=== PATIENT | female | born 1965 | race African-American/Black ===

== ENCOUNTER 2020-11-10 23:47 | Observation (INO) | payer OTHER ==
[~2020-11-10] VITALS: Ht 172.7 cm; Wt 70.0 kg
[2020-11-11] MEDS ORDERED: SODIUM CHLORIDE 0.9% 1,000ML IVBOLUS ONE
--- NOTE | 2020-11-11 | NUR ---
TASK RN: CALL PLACED TO POISON CONTROL REGARDING PT INGESTION OF POSSIBLE ASPIRIN, MELATONIN AND WINDEX. PER POISON CONTROL, NO CONCERN REGARDING MELATONIN CONSUMPTION. WITH WINDEX, ETOH LEVEL TO BE TESTED AND MONITORED. WITH ASPIRIN CONSUMPTION, ASPIRIN LEVEL TO BE TESTED YANICK, IF INITIAL RESULT NEGATIVE, REPEAT TESTING IN 2 HOURS. IF INITIAL RESULT POSITIVE FOR ASPIRIN, LEVELS TO BE DRAWN EVERY 2 HOURS UNTIL PEAK THEN EVERY 4 HOURS UNTIL LEVEL IS LESS THAN 30. IF ASPIRIN LEVEL AT 30, POISON CONTROL ADVISED PT TO BE STARTED ON BICARB INFUSION. IMPORTANT TO CLOSELY MONITOR KIDNEY FUNCTION (BUN/CREATININE), POTASSIUM, RESPIRATORY RATE, TEMP, NAUSEA AND VOMITING. POISON CONTROL TO CALL BACK LATER. CASE #:[id number]
--- NOTE | 2020-11-11 00:02 | NUR ---
Luis felix in [facility] - 11/11/20 at 0002 by JUANITA REPORT GIVEN TO MICHAEL ROBERTS
--- NOTE | 2020-11-11 00:09 | NUR ---
DAUGHTER (CESAR BAEZ) [phone]
--- NOTE | 2020-11-11 00:11 | NUR ---
BIB BY CATIE/IVON FROM [facility] AFTER SENDING TEXT MESAGES THAT SHE WAS SUCIDAL. 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
--- NOTE | 2020-11-11 00:22 | NUR ---
PATIENT MOVED TO ROOM 2 REPORT TO KAY ROBERTS
--- NOTE | 2020-11-11 00:28 | NUR ---
PT MOVED TO ROOM 2. REPORT RC'VD FROM REYNOLD ROBERTS. PT NOT OPENING EYES AT THIS TIME, NOT VERBALLY RESPONSIVE. POC RV'WD WITH PT AND DAUGHTER. IV BOLUS INFUSING.
--- NOTE | 2020-11-11 00:30 | NUR ---
PT NOW TURNING TOWARD HER DAUGHTER AND ASKING IF IT'S TIME FOR HER TO MEET HER () . DAUGHTER COMFORTING PT AT BS.
[2020-11-11 00:34] LABS: ALBUMIN 2.9 g/dL (3.4-5.0); ANION GAP 7 mmol/L (5-15); CALCIUM 6.7 mg/dL (8.5-10.1); CHLORIDE 122 mmol/L (98-107)
[2020-11-11 00:37] LABS: ALANINE AMINOTRANSFERASE 14 U/L (12-78); ALKALINE PHOSPHATASE 34 U/L (45-117); BILIRUBIN,TOTAL 0.2 mg/dL (0.2-1.0); CREATININE 0.63 mg/dL (0.55-1.02); TOTAL PROTEIN 6.1 g/dL (6.4-8.2)
[2020-11-11 00:39] LABS: SALICYLATE LEVEL < 1.7 mg/dL (2.8-20.0)
[2020-11-11 00:55] LABS: HCG UR SG 1.009 (1.003-1.030); MICROSCOPIC NOT IND
[2020-11-11 01:15] LABS: BASOPHILS % (AUTO) 1 % (0-1); EOSINOPHILS % (AUTO) 3 % (1-7); LYMPHOCYTES % (AUTO) 52 % (22-44); MEAN CORPUSCULAR HEMOGLOBIN 28.6 pg (27.0-34.8); MEAN CORPUSCULAR HGB CONC 32.9 g/dL (32.4-35.8); MEAN PLATELET VOLUME 9.1 fL (7.4-10.4); MONOCYTES % (AUTO) 8 % (2-9); NEUTROPHILS % (AUTO) 37 % (42-75); PLATELET COUNT 160 x10^3/uL (130-400); RED BLOOD COUNT 4.51 x10^6/uL (3.82-5.3); RED CELL DISTRIBUTION WIDTH 14.1 % (9.6-15.2)
--- NOTE | 2020-11-11 01:15 | NUR ---
REPORTED TO LILA ROBERTS.
[2020-11-11 01:17] LABS: AMPHETAMINE SCREEN, URINE Negative (Negative); BARBITURATE SCREEN, URINE Negative (Negative); BENZODIAZEPINE SCREEN, URINE Negative (Negative); CANNABINOID SCREEN, URINE Negative (Negative); COCAINE SCREEN, URINE Negative (Negative); METHADONE SCREEN, URINE Negative (Negative); OPIATE SCREEN, URINE Negative (Negative)
[2020-11-11 01:39] LABS: MD NO
[2020-11-11] MEDS ORDERED: POTASSIUM CHLORIDE 20 MEQ TAB.ER.PRT PO ONE ×2 (02:00→05:00)
[2020-11-11] MEDS ORDERED: POTASSIUM CHLORIDE 40 MEQ in SODIUM CHLORIDE 0.9% 500 ML IV ONE (02:00)
[2020-11-11] MEDS ORDERED: NS + 40MEQ KCL 1,000 ML IV ONE (02:04)
--- NOTE | 2020-11-11 02:20 | NUR ---
MD ORDERED POTASSIUM REPLACEMENT. PT HAS 18G PIV TO RIGHT HAND AND FLUSHED EASILY. IVF HUNG PER MD ORDER, 40MEQ POTASSIUM IN 500 ML NS TO RUN AT 130ML/HR TO REPLACE POTASSIUM. MD AWARE. PT SLEEPING AT THIS TIME, AND PTS DAUGHTER AT BEDSIDE. SIDERAILS UP X2 AND CALL LIGHT WITHIN REACH.
--- NOTE | 2020-11-11 02:36 | NUR ---
PT SLEEPING AT THIS TIME, C/O DISCOMFORT TO HER RIGHT HAND PIV AFTER KCL FOR PERIPHERAL ADMINISTRATION WAS STARTED. PT ADVISED TO NOT PULL THE LINE, AND WARM BLANKETS PROVIDED TO WRAP AROUND THE HAND TO HELP WITH THE PAIN AND DISCOMFORT. PT V/U AND PTS DAUGHTER AT BEDSIDE.
--- NOTE | 2020-11-11 04:16 | NUR ---
ALYCIA FLNiurka POISON CONTROL CALLED TO GET AN UPDATE ON THE PT THAT THE ER CALLED ON EARLIER. POISON CONTROL UPDATED. NO NEW ORDERS OR DIRECTION FROM POISON CONTROL AT THIS TIME.
--- NOTE | 2020-11-11 04:57 | NUR ---
PT RESTING COMFORTABLY, SLEEPING WITH DAUGHTER AT BEDSIDE. PT REMAINS ON CR MONITOR, WITH SINUS BRADYCARDIA. MD IS AWARE AND NO CHANGES WARRANTED. PT HAS HAD 2 EKG'S DONE. SIDERAILS UP X2 AND CALL LIGHT WITHIN REACH.
--- NOTE | 2020-11-11 05:48 | NUR ---
PTS DAUGHTERS NAME AND PHONE NUMBER FOR CONTACT: CESAR BAEZ [phone]
--- NOTE | 2020-11-11 05:49 | NUR ---
PTS 2ND DAUGHTER: JAMESON BAEZ,
--- NOTE | 2020-11-11 06:29 | NUR ---
PT SLEEPING AND ON CR MONITOR, NO CHANGES. PTS DAUGHTER WENT HOME TO REST, BUT PHONE NUMBERRS ARE AVAILABLE FOR THEM IF NEEDED. PT IS MORE CALM AND RESTING. PER THE PTS DAUGHTER, EARLIER THE PT WAS REALLY DISTRAUGHT AND "SEEING" HER . THE PTS DAUGHTER CAME TO STAFF AND TOLD US, THAT THE PT HAD BEEN SEEING THE PT ACROSS THE BHAKTA IN ROOM 3 AND IT REMINDED HER OF HER SO PT WAS BECOMING MORE AND MORE IRRATE. AFTER THAT PT WAS DISCHARGED THE PT BECAME CALM. STAFF WAS NOT MADE AWARE OF IT, UNTIL APPROXIMATELY 0530. PTS BAG X1 SECURED AND LABELED AND PLACED IN LOCKED CABINET.
--- NOTE | 2020-11-11 06:33 | NUR ---
DIET TRAY ORDERED
--- NOTE | 2020-11-11 07:20 | NUR ---
PATIENT IN HOSPITAL BED, SLEEPING QUIETLY, SITTER OUTSIDE ROOM. SHE IS CALM, MEAL TRAY ORDERED
--- NOTE | 2020-11-11 08:51 | NUR ---
BREAKFAST TRAY GIVEN, PATIENT ASLEEP AT THIS TIME
--- NOTE | 2020-11-11 10:08 | NUR ---
PATIENT RESTING QUIETLY
--- NOTE | 2020-11-11 10:15 | NUR ---
THROUGHPUT RN: DEBRA NOTIFIED OF PT.
--- NOTE | 2020-11-11 10:54 | NUR ---
PATIENT HELPED TO BATHROOM, NOW IN BED RESTING
--- NOTE | 2020-11-11 11:09 | NUR ---
THROUGHPUT RN: TARSHA PAYNE IN [facility] PT DECLINED DUE TO INSURANCE.
[2020-11-11 11:45] LABS: CREATININE 0.92 mg/dL (0.55-1.02)
[2020-11-11 11:59] LABS: ANION GAP 5 mmol/L (5-15); CHLORIDE 117 mmol/L (98-107)
--- NOTE | 2020-11-11 12:22 | NUR ---
GOT PATIENT LUNCH TRAY. SHE IS RESTING QUIETLY, SLEEPING SO DIDN'T WAKE HER.
--- NOTE | 2020-11-11 13:18 | NUR ---
PATIENT CALM AND RESTING QUIETLY SITTER OUTSIDE ROOM
--- NOTE | 2020-11-11 13:50 | NUR ---
THROUGHPUT RN: HUGO FAXED TO [facility].
--- NOTE | 2020-11-11 15:25 | NUR ---
PATIENT RESTING QUIETLY
--- NOTE | 2020-11-11 16:10 | NUR ---
PATIENT RESTING QUIETLY. WILL ORDER DINNER TRAY
[2020-11-11] MEDS ORDERED: HALOPERIDOL 5 MG/ML IM PRN (18:00)
[2020-11-11] MEDS ORDERED: LORazepam 2 MG/ML, 1ML IM PRN ×2 (18:00→19:00)
--- NOTE | 2020-11-11 18:04 | NUR ---
MARTIN MARQUEZ JUST SAW PATIENT, MEDS ORDERED. DAUGHTER VISITING
[2020-11-11] MEDS ORDERED: LORazepam 2 MG/ML, 1ML ONE (18:08)
[2020-11-11] MEDS ORDERED: SERTRALINE 50MG TABLET ONE (18:08)
[2020-11-11] MEDS ORDERED: HALOPERIDOL 5 MG TABLET ONE (18:08)
--- NOTE | 2020-11-11 18:26 | NUR ---
PATIENT HAS DAUGHTER MINI AT BEDSIDE, SHE IS SUPPORTIVE AND HELPFUL. PATIENT IS CALM AND TALKING TO DAUGHTER
--- NOTE | 2020-11-11 18:41 | NUR ---
PATIENT HAS DAUGHTER AT BEDSIDE, AND IS CALM. SHE IS ORIENTED, COOPERATIVE.
--- NOTE | 2020-11-11 18:54 | NUR ---
recieved report from day shift RN
--- NOTE | 2020-11-11 18:57 | NUR ---
REPORT TO NIGHT RN
--- NOTE | 2020-11-11 20:44 | NUR ---
pt asleep, all needs in reach, call light in reach, NAD, sitter in sight
[2020-11-11] MEDS ORDERED: HALOPERIDOL 5 MG TABLET PO SCH (21:00)
--- NOTE | 2020-11-11 21:08 | NUR ---
report recieved from EMS
--- NOTE | 2020-11-11 21:30 | NUR ---
PT HR DOWN TO 20'S ERP UPDATED STS "TRY CAFFEINE." OTHER VS MAINTAINING WITHIN NORMAL LIMITS.
--- NOTE | 2020-11-11 21:39 | NUR ---
pts heart rate was dropping, other vitals were stable, tea with caffeine given, pt positioned upright in bed, sitter in line of sight
--- NOTE | 2020-11-11 22:04 | NUR ---
pt laying in bed, a/ox4, all needs in reach, call light in reach, NAD, sitter in sight.
--- NOTE | 2020-11-11 23:08 | NUR ---
Luis felix in ED - 11/11/20 at 2309 by [email or web address] pt asleep in bed, all needs in reach, call light in reach, sitter in sight, V/S taken and all within normal
--- NOTE | 2020-11-11 23:09 | NUR ---
pt asleep in bed, all needs in reach, call light in reach, NAD, V/S taken, sitter in line of sight
--- NOTE | 2020-11-12 00:05 | NUR ---
pt asleep in bed, all needs in reach, call light in reach, NAD, sitter in line of sight
--- NOTE | 2020-11-12 01:29 | NUR ---
pt asleep in bed, all needs in reach, call light in reach, NAD, sitter in line of sight
--- NOTE | 2020-11-12 06:59 | NUR ---
Report received from ALEJANDRA Turner and care assumed. Sitter outside room in direct line of site, food on tray in room appears untouched and pt is resting with eyes closed in no apparent distress at this time. Pt is reported to be SI/SA on legal hold awaiting [facility] acceptance.
--- NOTE | 2020-11-12 08:34 | NUR ---
Pt still sleeping at this time. VS reassessed and found to be stable with bradycardia noted on EKG. Food remains untouched at bedside. RN discretion to hold off on shift assessment to allow for pt rest. Assessment for shift will occur once pt awakens. Room assessment completed. Due to monitoring equipment use needs, cords are present with sxn set up present and available if needed. All pt belongings are locked in cabinet outside of room and PSA direct continuous observation is in use for pt safety.
[2020-11-12] MEDS ORDERED: SERTRALINE 50MG TABLET PO SCH (09:00)
--- NOTE | 2020-11-12 09:20 | NUR ---
Pt continues to be asleep. Position change noted and VSS. RN discretion to continue to delay shift assessments until pt awakens made. Sitter remains in direct observation of pt continuously.
--- NOTE | 2020-11-12 10:16 | NUR ---
Pt awakened briefly and RN assessments completed. Pt back to sleep directly after without c/o voiced.
--- NOTE | 2020-11-12 11:01 | NUR ---
Pt continuous to sleep with no acute distress noted. HR increased to 61 with SR noted on EKG. Pt repositioned herself to Semi-Rowe's supine positioning. Direct observation by PSA in place.
--- NOTE | 2020-11-12 12:04 | NUR ---
Report to meal break RN and care transferred.
--- NOTE | 2020-11-12 12:35 | NUR ---
Report received from meal break RN and care reassumed.
--- NOTE | 2020-11-12 13:04 | NUR ---
Pt more awake now and asking for food. Pt notified of new food tray ordered and cranberry juice brought to bedside while awaiting food delivery.
--- NOTE | 2020-11-12 13:30 | NUR ---
Pt states her of 30 years just suddenly on 09/30/20 and describes being in the grieving process of denial, bargaining and depression since then. Pt states she has been able to hear him talking to her. She states she only took ASA for chest pain and melatonin to sleep because she has been having trouble since he from missing him so much. Pt states she does not want to kill herself and did not try to kill herself. Pt has no explanation for why Theo was near her and nearly empty.
--- NOTE | 2020-11-12 13:34 | NUR ---
Spent approximately 30 minutes sitting at bedside and speaking with pt about why she is still here, why she is going to have to wait for [facility] before being able to go home, and why she was taking medication and seeing/hearing her .
--- NOTE | 2020-11-12 13:45 | NUR ---
Lunch tray brought into pt room as well as a Bible. Pt states she cannot read it without her glasses and asked if her daughter could be called to bring her reading glasses to her when she comes to visit.
--- NOTE | 2020-11-12 14:30 | NUR ---
Pt still slowly working on food. Sleeping in between and with sitter outside in direct observation continuously.
--- NOTE | 2020-11-12 15:19 | NUR ---
Pt asleep in no acute distress at this time. VS remain stable.
--- NOTE | 2020-11-12 16:35 | NUR ---
Pt sleeping, awakens easily. No acute changes.
--- NOTE | 2020-11-12 17:20 | NUR ---
Pt sleeping, no acute distress noted.
[2020-11-12 18:37] VITALS: BP 110/66
--- NOTE | 2020-11-12 18:39 | NUR ---
Pt's daughter arrived at bedside. No questions for this RN from daughter or pt at this time. Daughter notified of need for reading glasses as this RN was distracted earlier and forgot to call her. Cranberry juice x2 brought into pt room and diet tray offered.
--- NOTE | 2020-11-12 18:50 | NUR ---
Report given to Avinash, RN and care transferred. RN aware of pending arrival of dinner tray.
--- NOTE | 2020-11-12 19:35 | NUR ---
PT A&OX4, NO ACUTE DISTRESS, CALM AND COOPERATIVE. RECEIVED D/C INSTRUCTIONS AND CHECKED WITH MD, AND PT IS OFF THE HOLD, AND IS ALSO READY FOR DISCHARGE. F/U AND D/C INSTRUCTIONS GIVEN TO PT WITH FOLLOW UP CLINIC INFORMATION. PIV D/C'D FROM RIGHT HAND AND CATH TIP INTACT. PT AMBULATORY TO DISCHARGE DESK.
== END 2020-11-12 23:37 | disposition home or self-care (01) ==
LOC: EDBD 23:47 → ED 11-11 03:01 → EDIP 11-11 03:23
PROVIDERS: ADMIT Emergency Medicine; ATTEND Emergency Medicine
DX: T39.012A Poisoning by aspirin, intentional self-harm, initial encounter (principal); T50.992A Poisoning by other drugs, medicaments and biological substances, intentional self-harm, initial encounter; E87.6 Hypokalemia; F22 Delusional disorders; F43.21 Adjustment disorder with depressed mood; G92 Toxic encephalopathy; R25.8 Other abnormal involuntary movements; R41.82 Altered mental status, unspecified; Z79.899 Other long term (current) drug therapy
CPT/HCPCS: 36415; 80048; 80053; 80299; 80307; 80320; 80329; 81003; 81025; 82140; 85025; 93005; 96361; 96365; 96366; 96372; 99284; G0378; J2060; J3480; J7030; J7040; G0480